=== PATIENT | female | born 1945 | race African-American/Black ===

== ENCOUNTER 2024-10-28 21:02 | Emergency (ER) | payer OTHER, BC ==
[~2024-10-28] VITALS: Ht 172.7 cm; Wt 84.0 kg
[2024-10-28] MEDS ORDERED: MORPHINE SULFATE 2 MG/ML INJ (NOT FOR IM USE) IV ONE (21:30)
[2024-10-28] MEDS ORDERED: ACETAMINOPHEN 325MG TABLET PO ONE (21:30)
[2024-10-28] MEDS ORDERED: ONDANSETRON HCL 4MG/2ML INJ IV ONE (21:30)
[2024-10-28] MEDS ORDERED: TETANUS, DIPHTHERIA, PERTUSSIS VAC/PF 0.5ML (>10YR OLD) IM ONE (21:30)
[2024-10-28 22:49] LABS: HEMATOCRIT. 32.9 % (36.0-48.0); HEMOGLOBIN. 11.2 g/dL (12.0-16.0); MEAN PLATELET VOLUME 10.3 fl (7.4-10.4); PLATELET 262 x1000/uL (130-400); RED BLOOD CELL COUNT 3.75 mill/uL (4.2-5.4); RED CELL DISTRIBUTION WIDTH 13.9 % (11.6-14.6)
[2024-10-28] MEDS: ONDANSETRON HCL 4MG/2ML INJ IV SCH (22:52)
[2024-10-28] MEDS: MORPHINE SULFATE 2 MG/ML INJ (NOT FOR IM USE) IV SCH (22:53)
[2024-10-28] MEDS: TETANUS, DIPHTHERIA, PERTUSSIS VAC/PF 0.5ML (>10YR OLD) IM ONE (22:54)
[2024-10-28] MEDS: ACETAMINOPHEN 325MG TABLET PO SCH (23:00)
[2024-10-28 23:02] LABS: CREATININE 1.0 mg/dL (0.6-1.0); UREA NITROGEN BLOOD 13 mg/dL (9-23)
[2024-10-28 23:03] LABS: TROPONIN I HIGH SENSITIVITY 5 ng/L (3.0-34)
[2024-10-28 23:39] LABS: BAND% 2.0 % (1.0-6.0); EOSINOPHILS % MANUAL 2.0 % (0.0-5.0); LYMPHOCYTES % MANUAL 7.0 % (20.0-60.0); MONOCYTES % MANUAL 6.0 % (2.0-8.0); NEUTROPHILS % MANUAL 83.0 % (45.0-75.0); PLATELET ESTIMATE NORMAL
[2024-10-28 23:43] VITALS: O2SAT 97
[2024-10-29] MEDS: LIDOCAINE HCL 1% 20ML VIAL INFIL NR (00:10)
[2024-10-29] MEDS: PROPOFOL 200MG/20ML VIAL IV ONE (00:24)
[2024-10-29 00:27] VITALS: O2SAT 97
[2024-10-29] MEDS: AMPICILLIN SOD/SULBACTAM NA 3 G in SODIUM CHLORIDE 0.9% 100 ML IV SCH (00:32)
[2024-10-29 01:45] VITALS: BP 155/91; PULSE 97; RESP 21; TEMP 36.9; O2SAT 99
[2024-10-29] MEDS ORDERED: AMOX1TAB16 MT (01:45)
[2024-10-29] MEDS ORDERED: IBUP-1455 MT (01:45)
[2024-10-29] MEDS ORDERED: GUAI600T26 MT (01:45)
[2024-10-29] MEDS ORDERED: HYDR-4001 MT (02:00)
== END 2024-10-29 02:41 | disposition home or self-care (01) ==
LOC: ER 21:02
DX: S52.251A Displaced comminuted fracture of shaft of ulna, right arm, initial encounter for closed fracture (principal); S52.351A Displaced comminuted fracture of shaft of radius, right arm, initial encounter for closed fracture; I10 Essential (primary) hypertension; V47.5XXA Car driver injured in collision with fixed or stationary object in traffic accident, initial encounter; Y92.410 Unspecified street and highway as the place of occurrence of the external cause; Y93.89 Activity, other specified; Y99.8 Other external cause status
CPT/HCPCS: 80048; 85025; 84484; 36415; 71045; 73090 ×2; 73130; 70450; 70486; 72125; 90715; 93005; 25565; 90471; 96375; 99152; 99285; 96365; J0295; J2003; J2405; J2704; J2270; J7050; Z7610 ×2; 94070; 94664; 94760; 98960